=== PATIENT | female | born 2005 | race Caucasian/White ===

== ENCOUNTER → 2025-02-07 | Outpatient (CLI) | payer OTHER, SELFPAY ==
--- NOTE | 2025-02-04 | LES_PTH ---
PATIENT: DEQUAN URIAS LOC: [facility] U#:[id number] AGE/SX: 19/ ROOM: RE02/07/[address]: Dr. Jeremy Lorenzana MD : 2005 BED: DIS: 02/07/2025 SPEC #: [id number] RECD: 02/04/25 17:20 STATUS: JAY SIMON #: [id number] ALTAGRACIA: 02/04/25 00:[address]: Jeremy Lorenzana DEPT: SURGICAL PATHOLOGY RECD BY: Silvio Bustos ENTERED: 02/07/25 09:37 SP TYPE: Lesion OTHR DR: Dr. Florencio Bueno MD Tissues: A - Skin of external ear, NOS Procedures: Surgery Specimen Level IV HEADER OPERATION: Excision of lesion left earlobe PRE-OP DIAGNOSIS: Left earlobe lesion TISSUE SUBMITTED: A- Lesion of left earlobe MICROSCOPIC DIAGNOSIS A. Earlobe, left, lesion, excision: * Skin with scar demonstrating thick collagen bands consistent with hypertrophic scar/keloid. MICROSCOPIC DESCRIPTION Slides are reviewed. GROSS DESCRIPTION A. Received in formalin labeled with the patient's name and date of . Designated as lesion left earlobe is a 0.8 x 0.6 x 0.5 cm polypoid portion of [place] skin (devoid of orientation) and a separate, 0.9 x 0.5 x 0.4 cm irregular tissue fragment. The resection margin of the skin is inked black and is bisected revealing rubbery to fibrotic cut surfaces. Entirely submitted in 1 cassette. MD 02/07/2025 CPT:90079
--- OUTSIDE RECORDS SUMMARY | 2025-02-07 20:44 | XMS RPT_ITS | CCD ---
Author Organization [facility] Care Team Providers Care Broadcast Meteorologist Name Role Phone Elvin Modi MD Primary Care Provider ELVIN MODI Attending Unavailable ELVIN MODI Primary Care Unavailable SCOTT HOLMAN Attending Unavailable ELVIN MODI Referring Unavailable ELVIN MODI Primary Care Unavailable Myles MEJIA, Dr. Matias Primary Care Provider Dr. Elvin Modi MD Referring Provider [phone] Dr. Jeremy Lorenzana MD Attending Provider [phone] Elvin Modi Primary Care Unavailable Elvin Modi Referring Unavailable Jeremy Lorenzana Attending Unavailable Jeremy Lorenzana Attending Unavailable Jeremy Lorenzana Referring Unavailable Elvin Modi Primary Care Unavailable Medications Current Medications Medication Drug Class(es) Dates Sig (Normalized) Sig (Original) amoxicillin 875 mg / clavulanate 125 mg oral tablet (3 sources) Penicillin-class Antibacterial Start: 03-09-2024 End: 03-16-2024 amoxicillin-clavu lanate potassium (AUGMENTIN) 875-125 mg per tablet Indications: Ingrown toenail of left foot with infection Take 1 tablet by mouth two times a day for 7 days. FOR 7 DAYS. 14 tablet 0 03/09/2024 03/16/2024 Active Start: 10-27-2023 End: 11-03-2023 take 1 tablet by mouth twice daily amoxicillin-clavulanate potassium (AUGMENTIN) 875-125 mg per tablet Indications: Ingrown toenail of left foot with infection Take 1 tablet by mouth two times a day for 7 days. 14 tablet 0 10/27/2023 11/03/2023 Active Comment on above: Take 1 tablet by hima th two times a day for 7 days. ciprofloxacin 500 mg oral tablet (1 source) Quinolone Antimicrobial Start: 03-11-20 End: 03-18-20 ciprofloxacin HCl (CIPRO) 500 mg tablet Take 1 tablet by mouth two times a day for 7 days. FOR 7 DAYS. 14 tablet 0 03/11/2024 03/18/2024 Active fluticasone propionate 0.05 mg/actuat metered dose nasal spray (1 source) Corticosteroid Start: 09-18-19 End: 10-18-19 take 2 spray(s) by mouth once daily fluticasone (FLONASE) 50 mcg/actuation nasal spray Use 2 Sprays in each nostril once daily. Rinse mouth after use. 1 Each 0 09/18/2023 10/18/2023 Active Comment on above: Use 2 Sprays in each nostril once daily. Rinse mouth after use. Problems Active Problems Problem Classification Problem Date Documented Date Episodic/Chronic Administrative/social admission (2 sources) Special examination status; Translations: [Encounter for examination for participation in sport] Episodic Other ear and sense organ disorders (1 source) Other specified disorders of right ear; Translations: [Ear pressure, right] Onset: 01-04-2025 Episodic Other ear and sense organ disorders (1 source) Disorder of left external ear, unspecified; Translations: [Disorder of left external ear, unspecified] Onset: 02-07-2025 Episodic Other skin disorders (3 sources) Infection of toenail; Translations: [Ingrowing nail] 10-27-2023 Episodic Other upper respiratory infections (1 source) Sore throat symptom; Translations: [Acute pharyngitis, unspecified] 09-18-2023 Episodic Otitis media and related conditions (1 source) Unspecified Eustachian tube disorder, bilateral; Translations: [Dysfunction of both eustachian tubes] Onset: 01-04-2025 Episodic Past or Other Problems Problem Classification Problem Date Documented Da te Episodic/Chronic Other and unspecified benign neoplasm (7 sources) Hemangioma; Translations: [Hemangioma unspecified site] Onset: 07-04-2011 07-04-2011 Episodic Other non-traumatic joint disorders (7 sources) Pain in right knee; Translations: [Pain in joint, lower leg] Onset: 02-25-2019 02-25-2019 Episodic Other skin disorders (7 sources) Pyogenic granuloma; Translations: [Pyogenic granuloma] Onset: 06-04-2011 06-04-2011 Episodic Other skin disorders (1 source) Pyogenic granuloma; Translations: [Pyogenic granuloma] Onset: 06-04-2011 Episodic Other skin disorders (1 source) Ingrowing nail; Translations: [Ingrown toenail of left foot with infection] Onset: 03-09-2024 Episodic Results Test Name Value Interpretation Reference Range Chula burgos Plastic Surgery Visit Report on 02-04-2025 Plastic Surgery Visit Report [facility] Plastic Reconstructive Surgery [address], [address] [place] [address] OFFICE VISIT Date of Service: 02/04/25 MR#: [id number] Acct: [id number] Name: HALLEY URIAS Rep #: [id number] : 2005 Provider: Dr. Jeremy Lorenzana MD Age/Sex: 19/F Location: [facility] [place] Status: Signed Intake Vital Signs 02/04/25 15:22 Weight: 147 lb BP 121/67 H Blood Pressure Location Lt brachial Position Sitting Respiration 18 Pulse 106 H Pulse Oximetry (%) 96 Oxygen Delivery Method room air Intake Visit Reasons: IN OFFICE PROCEDURE Is patient in pain?: No Allergies No Known Allergies Allergy (Unverified 02/04/25 15:14) Medications ???Medication ???Instructions ???Recorded ???Confirmed ???Type NK 02/04/25 02/04/25 History PFSH Medical History (Updated 02/04/25 @ 16:[address] Jeremy Lorenzana MD) Seasonal allergies Social History (Updated 02/04/25 @ 15:14 by Zabrina Hernandez) Smoking Status: Never smoker alcohol intake: never substance use type: does not use HPI IN OFFICE PROCEDURE Details: 1% lidocaine with epi [facility] [place] [id number] exp [id number] exp The patient is a 19-year-old female presenting with a keloid scar on the left earlobe. The lesion measures 0.5 x 0.5 cm and is located over a previous piercing site. The keloid has been present for approximately one year and causes discomfort when certain earrings are worn. The patient does not have a skin type typically associated with keloid formation, but there is a risk of recurrence if the lesion is excised. A previous similar lesion on the eyebrow was removed, which was described as solid and more red in appearance. Attestation: Documentation on this patient encounter was supported using ambient scribe technology/ voice AI technology. The patient consented to recording for the purpose of documenting the encounter. Provider reviewed content of the generated note prior to signature. ROS Details - Dermatological: Reports discomfort with certain earrings. Denies pain without earrings. General General: Yes good health; No fatigue, fever(s) or weight loss HENMT HENMT: No rhinitis, sore throat/mouth sore, nasal congestion, contacts or glaucoma Endo Endocrine: No thyroid disease, polydipsia, heat intolerance, cold intolerance, hepatitis or excessive urine Skin Skin: No Bleeding, bruising, changing moles or suspicious lesion Musc Musculoskeletal: No joint pain, joint stiffness, muscle weakness, back pain, osteoarthritis or Muscle aches/ myalgia Neuro Neurological: No headache(s), No lightheadedness and No numbness Cardio Cardiovascular: No chest pain, pacemaker, fatigue or shortness of breat with exertion Psych Psychiatric: No depression, claustrophobia or anxiety Resp Respiratory: No spitting up, shortness of breath, sleep apnea, asthma, emphysema, TB, Cough or Smoker Gastro Gastrointestinal: No diarrhea, constipation, blood in stool, nausea, vomiting or abdominal bloating Leonardo Hematologic: No anemia, No bleeding and No abnormal bleeding Genitourinary: No urinary frequency, blood in urine or incontinence Exam Details - Dermatological: 0.7 x 0.6 cm nodular lesion on left earlobe over previous piercing site Office Procedures Procedure Time Out Time Out Informed consent given: Yes Consent signed: Yes Time out checklist: patient, procedure, site marked/identified, positioning of patient, supplies available, allergies confirmed and team agrees on procedure Time out staff in room: Yes Time out verified: Yes Time out date: 02/04/25 Time out time: 16:05 Coding Level of Care Code Off vis,new,level 3 Diagnoses Skin lesion of left ear H61.92 Comment 25 modifier with CPT 11655, 69617 Assessment and Plan (No Qualifiers) Assessment and Plan (1) Skin lesion of left ear: Status: Acute Plan: Assessment and Plan The 19-year-old female presents with a keloid scar on the left earlobe, which has been present for approximately one year. The lesion is 0.7 x 0.6 cm and causes discomfort when certain earrings are worn. Although the patient does not have a typical skin type for keloid formation, there is a risk of recurrence if the lesion is excised. A previous similar lesion on the eyebrow was successfully removed, indicating potential for successful treatment of the current lesion. 1. Possible Keloid Scar On Left Earlobe The plan involves excision of the keloid scar with a follow-up appointment scheduled to monitor for recurrence. If the keloid recurs, a steroid injection will be administered to prevent further growth. The patient is advised to avoid re-piercing the earlobe until the area has healed completely. Left earlobe lesion excision Consent obtained Procedure per (more content not included)... [facility] CNOVon 01-04-2025 CNOV Office Visit (PEDSWS ) HALLEY URIAS ([id number]) 1 F Date Time Provider Department 01/04/25 10:30 AM ELVIN MODI PEDYAMILETH During your visit today, we recorded the following information about you: Temperature Pulse Respiration Blood pressure 97.1 degrees 76/minute 16/minute 116/72 Weight Last Period 66.3 kg 12/26/24 Elvin Modi MD 01/04/2025 11:17 AM Signed Hearing screen: FAILED Pure Tone Hearing Test: Provider notified. Pure Tone Hearing Test (20 dB at all frequencies or 25 dB at 500Hz) Right Ear: -500 Hz 40 -1000 Hz 25 -2000 Hz 20 -4000 Hz 20 Left Ear: -500 Hz 25 -1000 Hz 20 -2000 Hz 20 -4000 Hz 35 Subjective Halley is a 19-year-old female, otherwise healthy, presenting with right ear pressure and decreased hearing. Halley reports a 1-week history of right ear pressure and decreased hearing. Symptoms began suddenly while running with a right earbud in place, when she felt a sensation of increased moisture in the ear canal, causing the earbud to dislodge. Upon reinsertion, she noted significantly reduced auditory perception in the right ear, despite the earbud functioning normally in the left ear and being confirmed as operational by others. She also experiences intermittent pulsatile sensations in the right ear, described as pounding. She denies otorrhea, but mentions a sensation of potential discharge when lying down, though none has been observed. She denies inserting any foreign objects into the ear canal. She has not required pharmacological management for seasonal allergies, which she describes as mild. She denies fever, cough, chest tightness, dyspnea, or wheezing, but reports recent onset of URI symptoms, including cough, rhinorrhea, and congestion, beginning on Friday. 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 Additionally, she inquires about a fleshy lesion on her left ear, which she is considering having excised by a plastic surgeon. She has attempted warm compresses without improvement. Constitutional: (-) fever Ears/Nose/Mouth/Throat: (+) congestion, (+) ear pressure (right), (+) hearing changes (right), (-) ear discharge Respiratory: (-) cough, (-) shortness of breath, (-) chest tightness, (-) wheezing Skin: (+) ear lesion (left) Objective Blood pressure 116/72, pulse 76, temperature 36.2 ?C (97.1 ?F), temperature source Temporal, resp. rate 16, weight 66.3 kg (146 lb 3.2 oz), last menstrual period 12/26/2024. Physical examination of the head, neck, external ears, mouth and face fail to demonstrate any significant abnormality or assymetry to critical face to face observation. The salivary glands were normal. Facial motion was intact. NOSE: Examination of the nasal chamber revealed no significant abnormalities of the nasal septum, turbinates or meati. The mucosa was healthy and the airway was satisfactory MOUTH: Examination of the mouth included the lips, teeth, gums, hard and soft palate, tongue, floor of the mouth, and buccal mucosa were healthy to inspection and the mucosa was moist. OROPHARYNX: Examination of the oropharynx, including the soft palate, tonsillar fossa and posterior pharyngeal nichols were unremarkable and symmetrical. NECK: Inspection and palpation of the neck revealed no scars, masses crepitation or asymmetries. The thyroid was not palpable and was free of masses. EARS: Otoscoptic examination of the external canal, tympanic membrane and middle ear was unremarkable. Tympanic membranes are intact. There is a fleshy lobular lesion over the left earlobe. No discharge. Not fluctuant. Tests - Tympanogram: Type A bilaterally. - Audiogram: - Right ear: - 500 Hz: 40 dB - 1000 Hz: 25 dB - 2000 Hz: 20 dB - 4000 Hz: 20 dB - Left ear: - 500 Hz: 25 dB - 1000 Hz: 20 dB - 2000 Hz: 20 dB - 4000 Hz: 35 dB 1. Dysfunction of both eustachian tubes (H69.93) 2. Ear pressure, right (H93.8X1) - Conducted otoscopic examination; tympanic membranes intact with no signs of perforation or obstruction. - Tympanometry revealed Type A tympanograms bilaterally, indicating normal middle ear pressure. - Audiometry showed mild hearing loss in the lower frequencies on the right side: 500 Hz at 40 dB, 1000 Hz at 25 dB, 2000 Hz at 20 dB, 4000 Hz at 20 dB. - Diagnosed with Eustachian tube dysfunction, likely secondary to a viral upper respiratory infection. - Recommended Fluticasone nasal spray, two sprays in each nostril once daily for two weeks. - Advised taking Sudafedrin 120 mg ER, one tablet in the morning and one in the evening for 10 days. - Follow-up audiometry recommended after treatment course. 3. Pyogenic granuloma (L98.0) - Lesion on the ear appears fleshy, consistent with a pyogenic granuloma. - Discussed treatment options including surgical excision by a plastic surgeon (more content not included)... Normal [facility] Bacteria Wnd Culton 03-09-20 24 Bacteria identified Cx Nom (Wound) ORGANISM ID: 1 Moderate Staphylococcus aureus ORGANISM ID: 2 Moderate skin peña ORGANISM ID: 3 Rare Pseudomonas aeruginosa GRAM STAIN: Rare Gram positive cocci No Polymorphonuclear Leukocytes ORGANISM ID: 1 (STAPHYLOCOCCUS AUREUS) ANTIBIOTIC INTERPRETATION ISAÍAS STATUS REFERENCE RANGE Oxacillin S 0.5 F Susceptible <=2 , Resistant >2 Oxacillin-susceptible staphylococci are susceptible to other penicilllinase-stable penicillins, beta-lactam/beta-lactam ase inhibitor combinations, anti-staphylococcal cephems, and carbapenems. Erythromycin S <=0.25 F Susceptible <=0.5 , Intermediate >.5 , Resistant >4 Clindamycin S 0.25 F Susceptible <=0.5 , Intermediate >.5 , Resistant >2 Trimeth sulfameth S <=10 F Susceptible <=40 , Resistant >40 Vancomycin S 1 F Susceptible <=2 , Intermediate >2 , Resistant >8 Rifampin S <=0.5 F Susceptible <=1 , Intermediate >1 , Resistant >2 Rifampin should not be used alone for antimicrobial therapy. Tetracycline S <=1 F Susceptible <=4 , Intermediate >4 , Resistant >8 Doxycycline S <=0.5 F Susceptible <=4 , Intermediate >4 , Resistant >8 ORGANISM ID: 3 (PSEUDOMONAS AERUGINOSA) ANTIBIOTIC INTERPRETATION ISAÍAS STATUS REFERENCE RANGE Cefepime S 4 F Susceptible <=8 , Intermediate >8 , Resistant >16 Meropenem S <=0.5 F Susceptible <=2 , Intermediate >2 , Resistant >4 Piperacillin/Tazobac S 8 F Gentamicin R F Tobramycin NI <=2 F This isolate is intermediate or susceptible to tobramycin. If discrimination between intermediate and susceptible is needed, please call the lab to request additional testing. Ciprofloxacin S <=0.25 F Susceptible <=0.5 , Intermediate >.5 , Resistant >[address] [facility] Comment on above: Performed By: #### [id number] #### [facility] CLIA [id number] [address] [place] [address] [facility] CNOVon 03-09-2024 CNOV Office Visit (PODIWS ) HALLEY URIAS ([id number]) 1 F Date Time Provider Department 03/09/24 9:15 AM SCOTT HOLMAN During your visit today, we recorded the following information about you: Alina Aguila RN 03/10/2024 7:57 AM Signed Patient presents with: Left Great Toe - New Patient, Ingrown Nail Patient c/o ingrown toenail to L hallux lateral border since October. Was evaluated at PCP's office in October and placed on antibiotic. Since finishing antibiotic she has not had pain. Jeniffer Herrera LPN 03/09/2024 9:27 AM Signed Post-Op Nail Instructions Minimize activity until the anesthesia wears off (about 2-8 hours). Increase activity to tolerance Remove bandage tomorrow Soak affected toe/foot in epsom salts for 15-20 minutes twice daily After soaking, apply antibiotic ointment (OTC Neosporin) to affected toe and re bandage OTC Ibuprofen if having pain, provided you have no allergies or intolerance to NSAIDS Mild drainage, redness, and blood is expected, but if you expeirence severe pain, increase in drainage, swelling, or red streaking please contact our office immediately Feel free to contact office as well if you have any questions/concerns [phone], ask for Podiatry Nurse Jeniffer Herrera LPN 03/10/2024 7:57 AM Signed UNIVERSAL PROTOCOL / SAFETY CHECKLIST Procedure to be Performed: Partial nail avulsion, left hallux lateral nail border Sign In: A Moment of CARE was completed. Personnel directly involved with the procedure wore the appropriate PPE (Personal Protective Equipment). No special equipment needed. Patient/Surrogate Stated/Verified: PATIENT VERIFIED(optional for EMERGENT procedures): Patient name, Date of , Relevant allergies, and The intended procedure Time Out Communication: Intended patient and procedure match the source documents. Consent documented and matches the intended procedure. Relevant labs, photos, and/or imaging studies have been reviewed. Correct side/site marked and visible. Medications required for procedure verified. No fire risk assessment and interventions applicable. No implant(s) inserted. Sign Out: SIGN OUT (optional for EMERGENT procedures): All specimen containers correctly labeled. All instruments, equipment, possible retained foreign bodies accounted for. Post-procedure follow-up management communicated and Plan of Care Visit completed when applicable. ANN-MARIE MaldonadoScott 03/10/2024 7:57 AM Signed Consultation requested by Dr. Modi for an opinion regarding left hallux ingrowing toenail. My final recommendations will be communicated back to the requesting physician by way of shared Medical record or letter to requesting physician via US mail. Initial Podiatric Office Visit: Chief Complaint: This 18 year old female who presents with chief complaint:ingrowing toenail of left hallux lateral nail border HPI Patient presents to clinic for evaluation of left hallux Complains of chronic ingrowing toenail to the lateral border of left hallux This is an ongoing issue. Has been on antibiotics in the past. Here to discuss options. PAIN EVALUATION No data found in the last 1 encounters. HBA1CBritni (%) Date Value 05/23/2011 5.3 PCP: Elvin Modi MD PAST MEDICAL HISTORY Diagnosis Date PMH - PAST MEDICAL HISTORY OF 02/2007 normal color vision Current Outpatient Medications Medication Sig amoxicillin-clavulanate potassium (AUGMENTIN) 875-125 mg per tablet Take 1 tablet by mouth two times a day for 7 days. FOR 7 DAYS. No current facility-administered medications for this visit. ALLERGIES No Known Allergies PAST SURGICAL HISTORY Procedure Laterality Date NONE REM LESION FACE,EAR,EYE 0.6-1CM 05/28/11 Right eyebrow hemangioma FAMILY HISTORY Problem Relation Age of Onset Asthma Maternal Grandmother Hypertension Paternal Grandfather Heart Father atrial fibrillation Social History Tobacco Use Smoking status: Never Smokeless tobacco: Never Tobacco comments: no smoking in house Substance Use Topics Alcohol use: No Drug use: No REVIEW OF SYSTEMS GENERAL: Negative for Malaise, significant weight loss, fever RESPIRATORY: Negative for cough, wheezing and shortness of breath CARDIOVASCULAR: Negative for chest pain, leg swelling and palpitations GI: Negative for abdominal discomfort, blood in stools or black stools and change in bowel habits : Negative for dysuria, frequency and incontinence MUSCULOSKELETAL: Negative for joint pain or swelling, back pain, and muscle pain. SKIN: Negative for lesions, rash, and itching. HEMATOLOGY/LYMPHOLOGY Negative for prolonged bleeding, bruising easily, and swollen nodes. ENDOCRINE: Negative for cold or heat intolerance, polyuria, polydipsia and goiter. NEURO: negative Physical Exam: Constitutional: Pt is a well (more content not included)... Normal [facility] 01-27-2024 [facility] Telephone (PEDSWS) HALLEY URIAS ([id number]) 1 F Date Time Provider Department 01/27/24 ELVIN MODI PEDYOLANDAS During your visit today, we recorded the following information about you: Charisma Grewal LPN 01/27/2024 1:34 PM Signed Pt has a possible infected great toe. Wonders if you can see or if can get a referral placed to go to Podiatry? Elvin Modi MD 02/02/2024 2:48 PM Signed Telephone on 01/27/24 CONSULT TO PODIATRY Elvin Modi MD Allergies As of Date: 01/27/2024 (No Known Allergies) Date Reviewed: 10/27/2023 Reviewed by: Renee Moreira MA - Fully Assessed Reason for Visit: Ingrown Toenail [111] Primary Visit Diagnosis:Ingrown toenail of left foot with infection [L60.0] Order(s):CONSULT TO PODIATRY [9034] Order #: [id number]: 1 FUTURE Problem List As Of Date 01/27/2024 Noted Resolved Pyogenic granuloma [L98.0] 06/04/2011 Hemangioma [D18.00] 07/04/2011 Acute pain of right knee [M25.561] 02/25/2019 Encounter Status:Closed by ELVIN MODI on 02/02/[address] [facility] COVID & INFLUENZA A/B & RSV NAAT, ROUTINEon 09-19-2023 FLUAV RNA CAMILLA+probe Ql (Unsp spec) Not detected Not Detected [facility] FLUBV RNA CAMILLA+probe Ql (Unsp spec) Not detected Not Detected [facility] RSV A RNA CAMILLA+probe Ql (Unsp spec) Detected Abnormal Not Detected [facility] SARS-CoV-2 (COVID-19) RNA CAMILLA+probe Ql (Resp) Not detected See comment [facility] STREP A MOLECULAR (POC)on Procedural Control Valid [facility] Strep A (POCT) Negative Negative [facility] XR ANKLE 3V AP/LAT/OBL RTon 07-11-2021 XR ANKLE 3V AP/LAT/OBL RT * * *Final Report* * * DATE OF EXAM: Jul 11 2021 5:41PM LDX 5297 - XR ANKLE 3V AP/LAT/OBL RT / PROCEDURE REASON: Ankle pain, initial exam * * * * Physician Interpretation * * * * RIGHT ANKLE, 3 VIEWS, 07/11/2021 HISTORY: Injury. Pain and swelling laterally. COMPARISON: None TECHNIQUE: AP, lateral, and internal oblique views. RESULTS: There is mild soft tissue swelling laterally. The bones appear intact and normally aligned. There is no widening of the ankle mortise. There are no underlying bone lesions. The joint spaces appear normal. There are no soft tissue calcifications. IMPRESSION: Mild soft tissue swelling laterally. No bone or joint abnormalities. [employer] Executive Director: KAT Transcribe Date/Time: Jul 11 2021 5:44P Dictated by : DENY CARRILLO MD This examination was interpreted and the report reviewed and electronically signed by: DENY CARRILLO MD on Jul 11 2021 5:45PM EST [id number] Normal [facility] Vital Signs Date Time Vital Sign Value Performing Clinician Facility 02-04-2025 15:22-0400 Body weight 66.[address] Elvin Modi MD Work Phone: [facility] 02-04-2025 15:22-0400 Diastolic blood pressure 67 mm[Hg] Dr. Elvin Modi MD Work Phone: [phone] [place] [address] 02-04-2025 15:22-0400 Heart rate 106 /min Dr. Elvin Modi MD Work Phone: [phone] [place] [address] 02-04-2025 15:22-0400 Respiratory rate 18 /min Dr. Elvin Modi MD Work Phone: [phone] [place] [address] 02-04-2025 15:22-0400 SaO2% (BldA) [Mass fraction] 96 % Dr. Elvin Modi MD Work Phone: [facility] 02-04-2025 15:22-0400 Systolic blood pressure 121 mm[Hg] Dr. Elvin Modi MD Work Phone: [facility] 10-27-2023 09:29-0400 Body height 168.9 cm Elvin Modi MD Work Phone: [facility] 10-27-2023 09:29-0400 Body temperature 97.9 [degF] Elvin Modi MD Work Phone: [facility] 10-27-2023 09:29-0400 Body weight 68.13 kg Elvin Modi MD Work Phone: [facility] 10-27-2023 09:29-0400 Heart rate 72 /min Elvin Modi MD Work Phone: [facility] 10-27-2023 09:29-0400 Respiratory rate 16 /min Elvin Modi MD Work Phone: [facility] 09-18-2023 16:30-0500 Body temperature 98.71 [degF] Marcelladennis Babcock APRN.BROOMMAKING SUPERVISOR Work Phone: [facility] 09-18-2023 16:30-0500 Body weight 68.95 kg Marcella Babcock MASS SPECTROMETRY MANAGER.BROOMMAKING SUPERVISOR Work Phone: [facility] 09-18-2023 16:30-0500 Diastolic blood pressure 87 mm[Hg] Marcella Babcock MASS SPECTROMETRY MANAGER.BROOMMAKING SUPERVISOR Work Phone: [facility] 09-18-2023 16:30-0500 Heart rate 107 /min Marcella Babcock MASS SPECTROMETRY MANAGER.BROOMMAKING SUPERVISOR Work Phone: [facility] 09-18-2023 16:30-0500 Respiratory rate 20 /min Marcella Babcock MASS SPECTROMETRY MANAGER.BROOMMAKING SUPERVISOR Work Phone: [facility] 09-18-2023 16:30-0500 SaO2% (BldA) [Mass fraction] 96 % Marcella James KEVIN.BROOMMAKING SUPERVISOR Work Phone: [facility] 09-18-2023 16:30-0500 Systolic blood pressure 142 mm[Hg] Marcella Babcock MASS SPECTROMETRY MANAGER.BROOMMAKING SUPERVISOR Work Phone: [facility] 03-28-2022 17:43-0400 Body temperature 98.49 [degF] Ilsa Athy PA-C Work Phone: [facility] 03-28-2022 17:43-0400 Body weight 66.77 kg Ilsa Athy PA-C Work Phone: [facility] 03-28-2022 17:43-0400 Diastolic blood pressure 82 mm[Hg] Ilsa Athy PA-C Work Phone: [facility] 03-28-2022 17:43-0400 Heart rate 81 /min Ilsa Athy PA-C Work Phone: [facility] 03-28-2022 17:43-0400 Respiratory rate 16 /min Ilsa Athy PA-C Work Phone: [facility] 03-28-2022 17:43-0400 SaO2% (BldA) [Mass fraction] 98 % Ilsa Athy PA-C Work Phone: [facility] 03-28-2022 17:43-0400 Systolic blood pressure 124 mm[Hg] Ilsa Solorzano PA-C Work Phone: [facility] Encounters Encounter Date Encounter Type Care Provider Facility Start: 02-07-2025 ambulatory Jeremy Lorenzana Facility:[facility] Start: 02-04-2025 End: 02-04-[address] Jeremy Lorenzana MD -[facility] Work Phone: Start: 02-04-2025 End: 02-04-[address] Elvin Modi MD Work Phone: [facility] Work Phone: Start: 01-04-2025 End: 01-04-2025 ambulatory ELVIN MODI Facility:[facility] Start: 03-11-2024 ambulatory Scott Suazora asif Work Phone: Podiatry Comment on above: wound culture Start: 03-11-2024 E-mail encounter fro m caregiver Scott Holman Work Phone: Podiatry Start: 03-09-2024 End: 03-09-2024 ambulatory SCOTT HOLMAN Facility:[facility] Start: 03-09-2024 End: 03-09-2024 Patient encounter procedure Scott Holman Work Phone: Podiatry Comment on above: Ingrown toenail of l eft foot with infection Start: 01-27-2024 Telephone encounter Elvin estrada MD Work Phone: [facility] Comment on above: Ingrown Toenail Start: 10-27-2023 End: 10-27-2023 Patient encounter procedure Elvin Modi MD Work Phone: [facility] Comment on above: Ingrown toenail of l eft foot with infection (Primary Dx) Start: 09-18-2023 End: 09-18-2023 Patient encounter procedure Marcella Babcock APRN.CNP Work Phone: [facility] Comment on above: Sore throat (Primary Dx) Start: 03-28-2022 End: 03-28-2022 Patient encounter procedure Ilsa Solorzano PA-C Work Phone: [facility] Comment on above: Sports physical (Zenia albaro Dx) Start: 02-12-2022 Telephone encounter Elvin estrada MD Work Phone: [facility] Comment on above: Appointment Procedures Date Procedure Procedure Detail Performing Clinician Start: 03-09-2024 Cul bact xcpt urine blood/stool aerobic isol Scott Holman Work Phone: Start: 09-18-2023 COVID & INFLUENZA A/ B & RSV NAAT, ROUTINE Marcella Babcock APRN.BROOMMAKING SUPERVISOR Work Phone: Start: 09-18-2023 STREP A MOLECULAR (POC) Marcella Babcock APRN.BROOMMAKING SUPERVISOR Work Phone: Start: 03-26-2021 Adult depression screening assessment Elvin Modi MD Work Phone: Plan of Treatment Date Care Activity Detail Author Start: 03-18-2026 Urine microalbumin profile [facility] Start: 04-18-2024 Influenza vaccination [facility] Start: 08-18-2023 Behavioral Health Screening Behavioral Health Screening [facility] Start: 08-18-2023 Depression Assessment Depression Assessment [facility] Start: 04-18-2023 Covid-19 Vaccine ( season) Covid-19 Vaccine ( season) [facility] Start: 04-18-2023 Influenza vaccination Influenza Vaccine (#1) [facility] Start: 04-18-2022 Influenza vaccination [facility] Start: 03-26-2022 Adult depression screening assessment DEPRESSION SCREENING [facility] Start: 12-17-2021 Anxiety Screening Anxiety Screening [facility] Start: 12-17-2021 CHLAMYDIA SCREENING (18-24) CHLAMYDIA SCREENING (18-24) [facility] Start: 12-17-2021 Depression Screening Depression Screening [facility] Start: 12-17-2021 GC (GONORRHEA) SCREENING (18-24) GC (GONORRHEA) SCREENING (18-24) [facility] Start: 12-17-2021 HEPATITIS C SCREENING HEPATITIS C SCREENING [facility] Start: 12-17-2021 Hepatitis C screening Hepatitis C Screening [facility] Start: 12-17-2021 HIV SCREENING HIV SCREENING [facility] Start: 12-17-2021 HIV screening HIV Screening [facility] Start: 12-17-2021 Screening for Chlamydia trachomatis Chlamydia Screening (18-24) [facility] Start: 2019 Meningococcal B Vaccine: Consider Based On Risk (1 of 2 - Patient Seeks Protection) Meningococcal B Vaccine: Consider Based On Risk (1 of 2 - Patient Seeks Protection) [facility] Start: 12-17-2018 HPV Vaccine (1 - 3-dose series) HPV Vaccine (1 - 3-dose series) [facility] Start: 12-17-2017 PEDS TO ADULT TRANSITION ANNUAL ASSESSMENT PEDS TO ADULT TRANSITION ANNUAL ASSESSMENT [facility] Start: 2015 PEDS TO ADULT TRANSITION INITIAL DISCUSSION PEDS TO ADULT TRANSITION INITIAL DISCUSSION [facility] Start: 12-17-2014 HPV VACCINE (1 - 2-dose series) HPV VACCINE (1 - 2-dose series) [facility] Start: 12-17-2013 MENINGOCOCCAL B: Consider based on risk (1 of 2 - Risk Bexsero 2-dose series) MENINGOCOCCAL B: Consider based on risk (1 of 2 - Risk Bexsero 2-dose series) [facility] Start: 12-17-2012 HPV Vaccine (1 - 2-dose series) HPV Vaccine (1 - 2-dose series) [facility] Start: 12-17-2008 COVID-19 VACCINE (#1) COVID-19 VACCINE (#1) [facility] Start: 06-19-2004 COVID-19 VACCINE (#1) COVID-19 VACCINE (#1) [facility] Bacteria identified in Wound by Culture ABSCESS AND WOUND CULTURE WITH GRAM STAIN Microbiology Routine Ingrown toenail of left foot with infection 03/09/2024 10:06 AM EDT [facility] Work Phone: [facility] Immunizations Immunization Date Immunization Notes Care Provider Fa cili 03-02-2020 meningococcal polysaccharide (groups A, C, Y and W-135) diphtheria toxoid conjugate vaccine (MCV4P) Elvin Modi MD Work Phone: [facility] Work Phone: 03-18-2016 meningococcal polysaccharide (groups A, C, Y and W-135) diphtheria toxoid conjugate vaccine (MCV4P) Elvin Modi MD Work Phone: [facility] 03-18-2016 tetanus toxoid, redu canelo diphtheria toxoid, and acellular pertussis vaccine, adsorbed Elvin Modi MD Work Phone: [facility] 05-17-2013 influenza virus vacc ine, live, attenuated, for intranasal use Elvin Modi MD Work Phone: [facility] Work Phone: 05-17-2013 influenza virus vacc ine, unspecified formulation Marcella Babcock APRN.[facility] Work Phone: [facility] 08-06-2012 influenza virus vacc ine, live, attenuated, for intranasal use Elvin Modi MD Work Phone: [facility] 06-27-2009 novel influenza-H1N1 -09, all formulations Elvin Modi MD Work Phone: [facility] Work Phone: 03-08-2009 diphtheria, tetanus toxoids and acellular pertussis vaccine Elvin Modi MD Work Phone: [facility] Work Phone: 03-08-2009 measles, mumps and rubella virus vaccine Elvin Modi MD Work Phone: [facility] Work Phone: 03-08-2009 poliovirus vaccine, inactivated Elvin Modi MD Work Phone: [facility] Work Phone: 09-18-2005 Chicken Pox (disease) Elvin narvaez MD Work Phone: [facility] Work Phone: 06-21-2005 influenza virus vacc ine, unspecified formulation Elvin Modi MD Work Phone: [facility] 03-20-2005 diphtheria, tetanus toxoids and acellular pertussis vaccine Elvin Modi MD Work Phone: [facility] Work Phone: 03-20-2005 haemophilus influenz ae type b vaccine, HbOC conjugate Elvin Modi MD Work Phone: [facility] Work Phone: 2004 measles, mumps and rubella virus vaccine Elvin Modi MD Work Phone: [facility] Work Phone: 2004 pneumococcal conjuga te vaccine, 7 valent Elvin Modi MD Work Phone: [facility] Work Phone: 06-19-2004 DTaP-hepatitis B and poliovirus vaccine Elvin Modi MD Work Phone: [facility] Work Phone: 06-19-2004 haemophilus influenz ae type b vaccine, HbOC conjugate Elvin Modi MD Work Phone: [facility] Work Phone: 06-19-2004 influenza virus vacc ine, unspecified formulation Elvin Modi MD Work Phone: [facility] Work Phone: 06-19-2004 pneumococcal conjuga te vaccine, 7 valent Elvin Modi MD Work Phone: [facility] Work Phone: 04-26-2004 DTaP-hepatitis B and poliovirus vaccine Elvin Modi MD Work Phone: [facility] Work Phone: 04-26-2004 haemophilus influenz ae type b vaccine, HbOC conjugate Elvin Modi MD Work Phone: [facility] Work Phone: 04-26-2004 pneumococcal conjuga te vaccine, 7 valent Elvin Modi MD Work Phone: [facility] Work Phone: 02-29-2004 DTaP-hepatitis B and poliovirus vaccine Elvin Modi MD Work Phone: [facility] Work Phone: 02-29-2004 haemophilus influenz ae type b vaccine, HbOC conjugate Elvin Modi MD Work Phone: [facility] Work Phone: 02-29-2004 pneumococcal conjuga te vaccine, 7 valent Elvin Modi MD Work Phone: [facility] Work Phone: Payers Date Payer Category Payer Self-pay 2024 Private Health Insurance [id number] 2023 Unknown [employer] GMS [id number] 2023-Present [phone] [address] [place] [address] PPO [id number] 2023 Unknown [id number] 2017 Medicaid [place] [employer] [place] [employer] [id number] 2017-Present [phone] [address] [place], [place] [address] Medicaid [id number] 2017 Medicaid [place] [employer] [id number] 2017-Present [phone] [address] [place] [address] Medicaid [id number] 2011 Unknown [employer] [id number] Unknown [id number] Unknown [id number] Social History Date Type Detail Facility Start: 02-06-2018 End: 02-04-2025 Tobacco smoking status NHIS Never smoked tobacco [facility] Start: 07-11-2021 End: 03-09-2024 Alcohol intake Current non-drinker of alcohol (finding) [facility] Start: 2003 Sex Assigned At Not on file [facility] Start: 02-06-2018 End: 09-18-2023 Tobacco use and exposure Smokeless tobacco non-user [facility] Start: 2003 Sex Assigned At Female C [facility] Start: 09-18-2023 End: 10-27-2023 History of Social function [facility] Start: 09-18-2023 End: 10-27-2023 Tobacco use panel [facility] PHQ2 Score 0 [place] [facility] Start: 09-18-2023 Tobacco Comment no smoking in house [facility] Start: 02-22-2022 Gender identity Identifies as female gender (finding) [facility] Start: 02-22-2022 Sexual orientation Heterosexual (fin baldo) [facility] Clinical Notes 02-12-2022 to 01-04-2025 Telephone Encounter - TestScott carrillo - 03/11/2024 10:06 PM EDTTelephone Encounter - Testrayefri Scott - 03/11/2024 10:[address] - 03/10/2024 7:51 AM EDTPatient Instructions Note Date & Type Note Facility 01-04-2025 Note HNO ID: [id number] Author: ELVIN MODI MD Service: ? Author Type: Physician Type: Progress Notes Filed: 01/04/2025 11:17 Note Text: Hearing screen: FAILED Pure Tone Hearing Test: Provider notified. Pure Tone Hearing Test (20 dB at all frequencies or 25 dB at 500Hz) Right Ear: -500 Hz 40 -1000 Hz 25 -2000 Hz 20 -4000 Hz 20 Left Ear: -500 Hz 25 -1000 Hz 20 -2000 Hz 20 -4000 Hz 35 Billie Rowley is a 19-year-old female, otherwise healthy, presenting with right ear pressure and decreased hearing. Halley reports a 1-week history of right ear pressure and decreased hearing. Symptoms began suddenly while running with a right earbud in place, when she felt a sensation of increased moisture in the ear canal, causing the earbud to dislodge. Upon reinsertion, she noted significantly reduced auditory perception in the right ear, despite the earbud functioning normally in the left ear and being confirmed as operational by others. She also experiences intermittent pulsatile sensations in the right ear, described as pounding. She denies otorrhea, but mentions a sensation of potential discharge when lying down, though none has been observed. She denies inserting any foreign objects into the ear canal. She has not required pharmacological management for seasonal allergies, which she describes as mild. She denies fever, cough, chest tightness, dyspnea, or wheezing, but reports recent onset of URI symptoms, including cough, rhinorrhea, and congestion, beginning on Friday. 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 Additionally, she inquires about a fleshy lesion on her left ear, which she is considering having excised by a plastic surgeon. She has attempted warm compresses without improvement. Constitutional: (-) fever Ears/Nose/Mouth/Throat: (+) congestion, (+) ear pressure (right), (+) hearing changes (right), (-) ear discharge Respiratory: (-) cough, (-) shortness of breath, (-) chest tightness, (-) wheezing Skin: (+) ear lesion (left) Objective Blood pressure 116/72, pulse 76, temperature 36.2 ?C (97.1 ?F), temperature source Temporal, resp. rate 16, weight 66.3 kg (146 lb 3.2 oz), last menstrual period 12/26/2024. Physical examination of the head, neck, external ears, mouth and face fail to demonstrate any significant abnormality or assymetry to critical face to face observation. The salivary glands were normal. Facial motion was intact. NOSE: Examination of the nasal chamber revealed no significant abnormalities of the nasal septum, turbinates or meati. The mucosa was healthy and the airway was satisfactory MOUTH: Examination of the mouth included the lips, teeth, gums, hard and soft palate, tongue, floor of the mouth, and buccal mucosa were healthy to inspection and the mucosa was moist. OROPHARYNX: Examination of the oropharynx, including the soft palate, tonsillar fossa and posterior pharyngeal nichols were unremarkable and symmetrical. NECK: Inspection and palpation of the neck revealed no scars, masses crepitation or asymmetries. The thyroid was not palpable and was free of masses. EARS: Otoscoptic examination of the external canal, tympanic membrane and middle ear was unremarkable. Tympanic membranes are intact. There is a fleshy lobular lesion over the left earlobe. No discharge. Not fluctuant. Tests - Tympanogram: Type A bilaterally. - Audiogram: - Right ear: - 500 Hz: 40 dB - 1000 Hz: 25 dB - 2000 Hz: 20 dB - 4000 Hz: 20 dB - Left ear: - 500 Hz: 25 dB - 1000 Hz: 20 dB - 2000 Hz: 20 dB - 4000 Hz: 35 dB 1. Dysfunction of both eustachian tubes (H69.93) 2. Ear pressure, right (H93.8X1) - Conducted otoscopic examination; tympanic membranes intact with no signs of perforation or obstruction. - Tympanometry revealed Type A tympanograms bilaterally, indicating normal middle ear pressure. - Audiometry showed mild hearing loss in the lower frequencies on the right side: 500 Hz at 40 dB, 1000 Hz at 25 dB, 2000 Hz at 20 dB, 4000 Hz at 20 dB. - Diagnosed with Eustachian tube dysfunction, likely secondary to a viral upper respiratory infection. - Recommended Fluticasone nasal spray, two sprays in each nostril once daily for two weeks. - Advised taking Sudafedrin 120 mg ER, one tablet in the morning and one in the evening for 10 days. - Follow-up audiometry recommended after treatment course. 3. Pyogenic granuloma (L98.0) - Lesion on the ear appears fleshy, consistent with a pyogenic granuloma. - Discussed treatment options including surgical excision by a plastic surgeon for optimal cosmetic outcome. - Patient's mother works at a plastic surgeon's office; patient will consult with them for removal. Attestation Recording using [employer] software for draft documentation of the visit was discussed with the patient/authorized manufacturers representative; all questions welcomed and answered (more content not included)... [facility] 03-11-2024 Telephone encounter Note Called in [employer] for patient Scott Holman DPM [facility] 03-11-2024 Miscellaneous Notes Called in [employer] for patient Soctt Holman DPM documented in this encounter [facility] 03-10-2024 Note HNO ID: [id number] Author: SCOTT HOLMAN, ? Service: ? Author Type: Physician Type: Progress Notes Filed: 03/10/2024 07:57 Note Text: Consultation requested by Dr. Modi for an opinion regarding left hallux ingrowing toenail. My final recommendations will be communicated back to the requesting physician by way of shared Medical record or letter to requesting physician via US mail. Initial Podiatric Office Visit: Chief Complaint: This 18 year old female who presents with chief complaint:ingrowing toenail of left hallux lateral nail border HPI Patient presents to clinic for evaluation of left hallux Complains of chronic ingrowing toenail to the lateral border of left hallux This is an ongoing issue. Has been on antibiotics in the past. Here to discuss options. PAIN EVALUATION No data found in the last 1 encounters. HBA1C, [place] (%) Date Value 05/23/2011 5.3 PCP: Elvin Modi MD PAST MEDICAL HISTORY Diagnosis Date PMH - PAST MEDICAL HISTORY OF 02/2007 normal color vision Current Outpatient Medications Medication Sig amoxicillin-clavulanate potassium (AUGMENTIN) 875-125 mg per tablet Take 1 tablet by mouth two times a day for 7 days. FOR 7 DAYS. No current facility-administered medications for this visit. ALLERGIES No Known Allergies PAST SURGICAL HISTORY Procedure Laterality Date NONE REM LESION FACE,EAR,EYE 0.6-1CM 05/28/11 Right eyebrow hemangioma FAMILY HISTORY Problem Relation Age of Onset Asthma Maternal Grandmother Hypertension Paternal Grandfather Heart Father atrial fibrillation Social History Tobacco Use Smoking status: Never Smokeless tobacco: Never Tobacco comments: no smoking in house Substance Use Topics Alcohol use: No Drug use: No REVIEW OF SYSTEMS GENERAL: Negative for Malaise, significant weight loss, fever RESPIRATORY: Negative for cough, wheezing and shortness of breath CARDIOVASCULAR: Negative for chest pain, leg swelling and palpitations GI: Negative for abdominal discomfort, blood in stools or black stools and change in bowel habits : Negative for dysuria, frequency and incontinence MUSCULOSKELETAL: Negative for joint pain or swelling, back pain, and muscle pain. SKIN: Negative for lesions, rash, and itching. HEMATOLOGY/LYMPHOLOGY Negative for prolonged bleeding, bruising easily, and swollen nodes. ENDOCRINE: Negative for cold or heat intolerance, polyuria, polydipsia and goiter. NEURO: negative Physical Exam: Constitutional: Pt is a well developed 18 year old female who is alert, oriented and cooperative Eyes: Following during examination. No redness or drainage. Respiratory: RR normal and nonlabored. Even breathing. No evidence of distress or shortness of breath. Psychology: Patient is engaged during conversation. Normal affect and mood. Does not appear depressed or anxious during encounter. Vascular: Dorsalis pedis and posterior tibial pulses palpable as b/l Capillary Fill time < 5 seconds to digits 1-5 b/l Skin temperature warm to warm proximal to distal b/l Hair growth present to digits Neurological: intact light touch/epicritic sensation b/l intact protective sensation no significant neurological deficits Dermatological: Left hallux lateral nail border is ingrowing with pain. There is small amount of drainage noted to left hallux lateral nail border with swelling and redness Musculoskeletal/Orthopaedic: Patient has pain to palpation of left hallux lateral nail border Radiographs: n/a ASSESSMENT: (L60.0) Ingrown toenail of left foot with infection PLAN: 1. History and physical examination performed. 2. Discussed ingrowing toenail of left hallux lateral nail border. This is an ongoing issue for patient. I discussed options for patient not limited to proper nail trimming vs partial nail matrixectomy. Being that this is a chronic problem for patient, I do feel partial nail matrixectomy is a reasonable option to consider. The only concern I have at this time is there is what appears to be infection present as evident by redness, drainage and swelling. I discussed options today with patient not limited to placing patient on antibiotic and doing partial nail avulsion vs slant back debridement and coming back to do definitive procedure in 1-2 weeks once infection is resolved. Patient elected for avulsion today and will plan to do matrixectomy in future. Discussed risks of toenail procedure not limited to infection, pain, swelling, bleeding, painful scarring, recurrence, need for revised procedure. Patient consented to proceed. Patient was properly identified by name and procedure. The left hallux was then injected with 3 cc of 1% lidocaine plain. The toe was then prepped and draped in the usual aseptic technique. A digital tournicot was applied to the toe. The lateral border was then freed and removed. Careful inspection was performed to assure no remain (more content not included)... [facility] 03-10-2024 History of Presen t illness Narrative Consultation requested by Dr. Modi for an opinion regarding left hallux ingrowing toenail. My final recommendations will be communicated back to the requesting physician by way of shared Medical record or letter to requesting physician via US mail. Initial Podiatric Office Visit: Chief Complaint: This 18 year old female who presents with chief complaint:ingrowing toenail of left hallux lateral nail border HPI Patient presents to clinic for evaluation of left hallux Complains of chronic ingrowing toenail to the lateral border of left hallux This is an ongoing issue. Has been on antibiotics in the past. Here to discuss options. PAIN EVALUATION No data found in the last 1 encounters. HBA1C, [place] (%) Date Value 05/23/2011 5.3 PCP: Elvin Modi MD PAST MEDICAL HISTORY Diagnosis Date PMH - PAST MEDICAL HISTORY OF 02/2007 normal color vision Current Outpatient Medications Medication Sig amoxicillin-clavulanate potassium (AUGMENTIN) 875-125 mg per tablet Take 1 tablet by mouth two times a day for 7 days. FOR 7 DAYS. No current facility-administered medications for this visit. ALLERGIES No Known Allergies PAST SURGICAL HISTORY Procedure Laterality Date NONE REM LESION FACE,EAR,EYE 0.6-1CM 05/28/11 Right eyebrow hemangioma FAMILY HISTORY Problem Relation Age of Onset Asthma Maternal Grandmother Hypertension Paternal Grandfather Heart Father atrial fibrillation Social History Tobacco Use Smoking status: Never Smokeless tobacco: Never Tobacco comments: no smoking in house Substance Use Topics Alcohol use: No Drug use: No REVIEW OF SYSTEMS GENERAL: Negative for Malaise, significant weight loss, fever RESPIRATORY: Negative for cough, wheezing and shortness of breath CARDIOVASCULAR: Negative for chest pain, leg swelling and palpitations GI: Negative for abdominal discomfort, blood in stools or black stools and change in bowel habits : Negative for dysuria, frequency and incontinence MUSCULOSKELETAL: Negative for joint pain or swelling, back pain, and muscle pain. SKIN: Negative for lesions, rash, and itching. HEMATOLOGY/LYMPHOLOGY Negative for prolonged bleeding, bruising easily, and swollen nodes. ENDOCRINE: Negative for cold or heat intolerance, polyuria, polydipsia and goiter. NEURO: negative Physical Exam: Constitutional: Pt is a well developed 18 year old female who is alert, oriented and cooperative Eyes: Following during examination. No redness or drainage. Respiratory: RR normal and nonlabored. Even breathing. No evidence of distress or shortness of breath. Psychology: Patient is engaged during conversation. Normal affect and mood. Does not appear depressed or anxious during encounter. Vascular: Dorsalis pedis and posterior tibial pulses palpable as b/l Capillary Fill time < 5 seconds to digits 1-5 b/l Skin temperature warm to warm proximal to distal b/l Hair growth present to digits Neurological: intact light touch/epicritic sensation b/l intact protective sensation no significant neurological deficits Dermatological: Left hallux lateral nail border is ingrowing with pain. There is small amount of drainage noted to left hallux lateral nail border with swelling and redness Musculoskeletal/Orthopaedic: Patient has pain to palpation of left hallux lateral nail border Radiographs: n/a ASSESSMENT: (L60.0) Ingrown toenail of left foot with infection PLAN: 1. History and physical examination performed. 2. Discussed ingrowing toenail of left hallux lateral nail border. This is an ongoing issue for patient. I discussed options for patient not limited to proper nail trimming vs partial nail matrixectomy. Being that this is a chronic problem for patient, I do feel partial nail matrixectomy is a reasonable option to consider. The only concern I have at this time is there is what appears to be infection present as evident by redness, drainage and swelling. I discussed options today with patient not limited to placing patient on antibiotic and doing partial nail avulsion vs slant back debridement and coming back to do definitive procedure in 1-2 weeks once infection is resolved. Patient elected for avulsion today and will plan to do matrixectomy in future. Discussed risks of toenail procedure not limited to infection, pain, swelling, bleeding, painful scarring, recurrence, need for revised procedure. Patient consented to proceed. Patient was properly identified by name and procedure. The left hallux was then injected with 3 cc of 1% lidocaine plain. The toe was then prepped and draped in the usual aseptic technique. A digital tournicot was applied to the toe. The lateral border was then freed and removed. Careful inspection was performed to assure no remaining spicule present. Avulsion was performed. Wound culture performed. Sterile dressing was then applied consisting of amerigel, guaze, fletcher and coban. Tournicot was removed and hyperemic response was noted. Patient tolerated well. Patient will f/u in 2 weeks. Scott Holman DPM Podiatry [address] [facility] [address] Dept: [phone] Dept UNIVERSAL PROTOCOL / SAFETY CHECKLIST Procedure to be Performed: Partial nail avulsion, left hallux lateral nail border Sign In: A Moment of CARE was completed. Personnel directly involved with the procedure wore the appropriate PPE (Personal Protective Equipment). No special equipment needed. Patient/Surrogate Stated/Verified: PATIENT VERIFIED(optional for EMERGENT procedures): Patient name, Date of , Relevant allergies, and The intended procedure Time Out Communication: Intended patient and procedure match the source documents. Consent documented and matches the intended procedure. Relevant labs, photos, and/or imaging studies have been reviewed. Correct side/site marked and visible. Medications required for procedure verified. No fire risk assessment and interventions applicable. No implant(s) inserted. Sign Out: SIGN OUT (optional for EMERGENT procedures): All specimen containers correctly labeled. All instruments, equipment, possible retained foreign bodies accounted for. Post-procedure follow-up management communicated and Plan of Care Visit completed when applicable. Jeniffer Herrera LPN Patient presents with: Left Great Toe - New Patient, Ingrown Nail Patient c/o ingrown toenail to L hallux lateral border since October. Was evaluated at PCP's office in October and placed on antibiotic. Since finishing antibiotic she has not had pain. documented in this encounter [facility] 03-09-2024 Note HNO ID: [id number] Author: JENIFFER HERRERA LPN Service: ? Author Type: LICENSED NURSE Type: Progress Notes Filed: 03/10/2024 07:57 Note Text: UNIVERSAL PROTOCOL / SAFETY CHECKLIST Procedure to be Performed: Partial nail avulsion, left hallux lateral nail border Sign In: A Moment of CARE was completed. Personnel directly involved with the procedure wore the appropriate PPE (Personal Protective Equipment). No special equipment needed. Patient/Surrogate Stated/Verified: PATIENT VERIFIED(optional for EMERGENT procedures): Patient name, Date of , Relevant allergies, and The intended procedure Time Out Communication: Intended patient and procedure match the source documents. Consent documented and matches the intended procedure. Relevant labs, photos, and/or imaging studies have been reviewed. Correct side/site marked and visible. Medications required for procedure verified. No fire risk assessment and interventions applicable. No implant(s) inserted. Sign Out: SIGN OUT (optional for EMERGENT procedures): All specimen containers correctly labeled. All instruments, equipment, possible retained foreign bodies accounted for. Post-procedure follow-up management communicated and Plan of Care Visit completed when applicable. Jeniffer Herrera LPN [facility] 03-09-2024 Instructions Jeniffer Herrera LPN - 03/09/2024 9:27 AM EDT Post-Op Nail Instructions Minimize activity until the anesthesia wears off (about 2-8 hours). Increase activity to tolerance Remove bandage tomorrow Soak affected toe/foot in epsom salts for 15-20 minutes twice daily After soaking, apply antibiotic ointment (OTC Neosporin) to affected toe and re bandage OTC Ibuprofen if having pain, provided you have no allergies or intolerance to NSAIDS Mild drainage, redness, and blood is expected, but if you expeirence severe pain, increase in drainage, swelling, or red streaking please contact our office immediately Feel free to contact office as well if you have any questions/concerns [phone], ask for Podiatry Nurse documented in this encounter [facility] 03-09-2024 Note HNO ID: [id number] Author: ALINA AGUILA RN Service: ? Author Type: Registered Nurse Type: Progress Notes Filed: 03/10/2024 07:57 Note Text: Patient presents with: Left Great Toe - New Patient, Ingrown Nail Patient c/o ingrown toenail to L hallux lateral border since October. Was evaluated at PCP's office in October and placed on antibiotic. Since finishing antibiotic she has not had pain. [facility] 02-02-2024 Telephone encounter Note Telephone on 01/27/24 CONSULT TO PODIATRY Elvin Modi MD [facility] 02-02-2024 Miscellaneous Notes Telephone on 01/27/24 CONSULT TO PODIATRY Elvin Modi MD Pt has a possible infected great toe. Wonders if you can see or if can get a referral placed to go to Podiatry? documented in this encounter [facility] 01-27-2024 Telephone encounter Note Pt has a possible infected great toe. Wonders if you can see or if can get a referral placed to go to Podiatry? [facility] 10-27-2023 History of Presen t illness Narrative Halley Urias is a 17-year-old female who presents to the office today with concerns of an ingrown left lateral great toenail. Soaking once to twice daily for the last 2 weeks with some mild improvement. No complaints of fever or generalized foot swelling. ACTIVE PROBLEM LIST Pyogenic Granuloma Hemangioma Acute Pain of Right Knee PAST MEDICAL HISTORY Diagnosis Date PM - PAST MEDICAL HISTORY OF 02/2007 normal color vision PAST SURGICAL HISTORY Procedure Laterality Date NONE REM LESION FACE,EAR,EYE 0.6-1CM 05/28/11 Right eyebrow hemangioma ALLERGIES No Known Allergies 10/27/23 0929 Pulse: 72 Resp: 16 Temp: 36.6 C (97.9 F) TempSrc: Esophageal Weight: 68.1 kg (150 lb 3.2 oz) Height: 168.9 cm (5' 6.5) GENERAL: alert and active in no apparent distress EXTREMITIES: Examination of the left great toe reveals an ingrown toenail along the left lateral border as well as granulation tissue. Discrete purulent discharge is present but there is no streaking or tracking over the dorsal or plantar surface of the foot. Great toe flexion and extension are intact. Sensation is intact in the great toe. Capillary refill is 1 second in the great toe ASSESSMENT/PLAN: 1. Ingrown toenail of left foot with infection - ICD9: 703.0, ICD10: L60.0 - AMOXICILLIN 875 MG-POTASSIUM CLAVULANATE 125 MG TABLET -Recommend the patient have matrixectomy. Patient will discuss with her family. I spent a total of 25 minutes on the date of the service which included preparing to see the patient, [id number] patient care, completing clinical documentation, obtaining and/or reviewing separately obtained history, performing a medically appropriate examination, counseling and educating the patient/family/caregiver, and ordering medications, tests, or procedures. 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 Patient reports congestion, intermittent fever and sore throat, and R ear pain. HPI: Halley Urias is a 17 year old female who presents to the office with complaint of respiratory symptoms, cough, nonproductive, sore throat, ear symptoms, and rhinorrhea for 5 days. Symptoms are staying the same. Associated symptoms includes sore throat, nasal congestion, rhinorrhea, fever, and ear pain. Denies facial pain/pressure, wheezing, dyspnea, nausea, vomiting , and diarrhea. Treatments tried include OTC cold medicine with minor relief of symptoms. Sick contacts: yes. History of asthma, frequent episodes of bronchitis, chronic bronchitis, bronchiectasis or COPD: No Smoker: No Seasonal/environmental allergies: No The ROS is otherwise negative. The patient's pmh, medications, allergies, and past visits are reviewed. PHYSICAL EXAM: BP 142/87 Pulse 107 Temp 37.1 C (98.7 F) Resp 20 Wt 68.9 kg (152 lb) LMP 09/06/2023 (Approximate) SpO2 96% General appearance: alert, cooperative, pleasant, in no acute distress Head: Normocephalic Eyes: PERRLA, EOM's intact, conjunctiva pink and moist, no icterus, sclera white, non-injected Ears: Right ear: External ear/canal- otitis externa, TM - erythematous. Left ear: External ear/canal- Normal, TM - clear with good landmarks Nose: clear rhinorrhea. Oropharynx:moist without lesions, mild erythema, without exudates present Neck:supple and no adenopathy Heart: Negative. RRR without obvious murmur, gallop, or rubs. No ectopy. Lungs: clear to auscultation, without rales or wheeze, good air exchange PAST MEDICAL HISTORY Diagnosis Date PMH - PAST MEDICAL HISTORY OF 02/2007 normal color vision PAST SURGICAL HISTORY Procedure Laterality Date NONE REM LESION FACE,EAR,EYE 0.6-1CM 05/28/11 Right eyebrow hemangioma ALLERGIES Patient has no known allergies. MEDICATIONS No prescriptions on file. FAMILY HISTORY Problem Relation Age of Onset Asthma Maternal Grandmother Hypertension Paternal Grandfather Heart Father atrial fibrillation Social History Tobacco Use Smoking status: Never Smokeless tobacco: Never Tobacco comments: no smoking in house Substance Use Topics Alcohol use: No Drug use: No DATA REVIEWED: Most recent labs ASSESSMENT/PLAN: 1. Sore throat - ICD9: 462, ICD10: J02.9 - suspect viral - Rapid Strep negative in the office today - Prescription for Fluticasone provided to help alleviate symptoms - Discussed supportive care treatment with fluids, rest and analgesia. - STREP A MOLECULAR (POC) - negative - COVID & INFLUENZA A/B & RSV NAAT, ROUTINE Prescription instructions reviewed with patient. Patient notified she would be contacted tomorrow with results of viral testing. Potential red flag symptoms discussed with the patient. Reviewed appropriate action plan to take if red flag symptoms occur. Patient agreeable to treatment plan. Ana Bassett Supervising provider was present and guided the care of the patient for the entire session on this date. All documentation was reviewed and agreed upon. Marcella Babcock APRN.ZACHARY documented in this encounter [facility] 03-28-2022 History of Presen t illness Narrative This note was created using BlockSpring[employer]. Subjective Halley Urias is a 16 year old female. HPI Patient presents needing a sports physical for [employer]. She will be going to [employer] starting next week. 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 She denies any concussions in the past. She did go to the ER for rolling her ankle in June 2021 but states that is all healed. No chest pain or shortness of breath. No URI symptoms. No abdominal pain vomiting or diarrhea. Last menstrual cycle was a month ago and normal for her. Denies chance of . Denies family history of sudden from cardiac illness under 35. See scanned document as well. Review of Systems Constitutional: Negative. HENT: Negative. Respiratory: Negative. Cardiovascular: Negative. Gastrointestinal: Negative. Genitourinary: Negative. Musculoskeletal: Negative. All other systems reviewed and are negative. PAST MEDICAL HISTORY Diagnosis Date PMH - PAST MEDICAL HISTORY OF 02/2007 normal color vision No current outpatient medications on file. No current facility-administered medications for this visit. PAST SURGICAL HISTORY Procedure Laterality Date NONE REM LESION FACE,EAR,EYE 0.6-1CM 05/28/11 Right eyebrow hemangioma FAMILY HISTORY Problem Relation Age of Onset Asthma Maternal Grandmother Hypertension Paternal Grandfather Heart Father atrial fibrillation Social History Tobacco Use Smoking status: Never Smokeless tobacco: Never Tobacco comments: no smoking in house Substance Use Topics Alcohol use: No Drug use: No Objective BP 124/82 Pulse 81 Temp 36.9 C (98.5 F) (Tympanic) Resp 16 Wt 66.8 kg (147 lb 3.2 oz) LMP 06/22/2021 SpO2 98% Physical Exam Vitals reviewed. Constitutional: Appearance: Normal appearance. HENT: Head: Normocephalic and atraumatic. Right Ear: Tympanic membrane, ear canal and external ear normal. Left Ear: Tympanic membrane, ear canal and external ear normal. Nose: Nose normal. Mouth/Throat: Mouth: Mucous membranes are moist. Pharynx: Oropharynx is clear. Cardiovascular: Rate and Rhythm: Normal rate and regular rhythm. Heart sounds: Normal heart sounds. Pulmonary: Effort: Pulmonary effort is normal. Breath sounds: Normal breath sounds. Skin: General: Skin is warm and dry. Findings: No rash. Neurological: General: No focal deficit present. Mental Status: She is alert and oriented to person, place, and time. Assessment and Plan ASSESSMENT/PLAN: 1. Sports physical - ICD9: V70.3, ICD10: Z02.5 Cleared here. Ilsa Solorzano PA-C documented in this encounter [facility] 02-12-2022 Miscellaneous Notes Message left for patient to call the office. Patient has appointment today with Dr. Modi. Please have patient arrive half an hour early to complete blood work due to lab closing at 5:00pm. Patient needs varicella titers done, please verify if other blood work is needed. Renee Moreira Ma documented in this encounter [facility] Chief complaint+Reason for v isit Narrative IN OFFICE PROCEDURE February 04, 2025 3:16 pm [facility] Work Phone: Evaluation note* Diagnosis Sports physical- Primary Other general medical examination for administrative purposes documented in this encounter [facility] note* Diagnosis Sore throat- Primary Acute pharyngitis documented in this encounter [facility] note* Diagnosis Ingrown toenail of left foot with infection- Primary documented in this encounter [facility] note* Diagnosis Ingrown toenail of left foot with infection- Primary documented in this encounter [facility] note* Diagnosis Ingrown toenail of left foot with infection documented in this encounter [facility] noteNo assessment information availableBlChildren's [facility] Work Phone: Reason for referral (narrative)No reason for referral information availableNav[facility] Work Phone: Summary Purpose Family History No Family History Records FoundNo Family History Records FoundNo Family History Records Found Advance Directives No Advanced Directives Records FoundNo Advanced Directives Records FoundNo Advanced Directives Records Found Reason for Referral Specialty Diagnoses / Procedures Referred By Deysi eid Referred To Contact Podiatry Diagnoses Ingrown toenail of left foot with infection Procedures CONSULT TO PODIATRY OFFICE/OUTPATIENT NEW HIGH MDM 60 MINUTES Elvin Modi MD [address] [place] [address] Referral ID Status Reason Start Date Expiration Date Visits Requested Visits Authorized [id number] Authorized PCP Requested Referral 02/02/2024 02/01/2025 1 1 Additional Source Comments INFORMATION SOURCE (unrecogn ized section and content) DATE CREATED AUTHOR 07/13/2021 [facility] DATE CREATED AUTHOR AUTHOR'S ORGANIZ ATION 01/05/2025 [facility] DATE CREATED AUTHOR AUTHOR'S ORGANIZ ATION 02/07/2025 [facility] Source Comments (unrecognize d section and content) In the event this informatio n is protected by the Federal Confidentiality of Alcohol and Drug Abuse Patient Records regulations: The Federal rules restrict any use of the information to criminally investigate or prosecute any alcohol or drug abuse patient.[facility] the event this information is protected by the Federal Confidentiality of Alcohol and Drug Abuse Patient Records regulations: The Federal rules restrict any use of the information to criminally investigate or prosecute any alcohol or drug abuse patient.[facility] the event this information is protected by the Federal Confidentiality of Alcohol and Drug Abuse Patient Records regulations: The Federal rules restrict any use of the information to criminally investigate or prosecute any alcohol or drug abuse patient.[facility] the event this information is protected by the Federal Confidentiality of Alcohol and Drug Abuse Patient Records regulations: The Federal rules restrict any use of the information to criminally investigate or prosecute any alcohol or drug abuse patient.[facility] the event this information is protected by the Federal Confidentiality of Alcohol and Drug Abuse Patient Records regulations: The Federal rules restrict any use of the information to criminally investigate or prosecute any alcohol or drug abuse patient.[facility] the event this information is protected by the Federal Confidentiality of Alcohol and Drug Abuse Patient Records regulations: The Federal rules restrict any use of the information to criminally investigate or prosecute any alcohol or drug abuse patient.[facility] the event this information is protected by the Federal Confidentiality of Alcohol and Drug Abuse Patient Records regulations: The Federal rules restrict any use of the information to criminally investigate or prosecute any alcohol or drug abuse patient.[facility] the event this information is protected by the Federal Confidentiality of Alcohol and Drug Abuse Patient Records regulations: The Federal rules restrict any use of the information to criminally investigate or prosecute any alcohol or drug abuse patient.[facility] Reason for Visit (unrecogniz ed section and content) Reason Comments 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 Reason Comments Ear Pain Bilat ears full, R w orse, hot flashes x 5 days Sinus Problem Pain and pressure in face and head, nasal congestion , headache x 5 days Reason Comments Check Toe Ingrown toenail - L great toe Reason Comments Ingrown Toenail Reason Comments New Patient Ingrown Nail Specialty Diagnoses / Procedures Referred By Deysi eid Referred To Contact Podiatry Diagnoses Ingrown toenail of left foot with infection Procedures CONSULT TO PODIATRY OFFICE/OUTPATIENT NEW HIGH MDM 60 MINUTES Elvin Modi MD [address] [place] [address] Referral ID Status Reason Start Date Expiration Date V isits Requested Visits Authorized [id number] Closed PCP Requested Referral 02/02/2024 02/01/2025 1 1 Care Teams (unrecognized sec tion and content) Broadcast Meteorologist Relationship Specialty Start Date End Date Elvin Modi MD [address] [place] [address] PCP - General 03 Broadcast Meteorologist Relationship Specialty Start Date End Date Elvin Modi MD [address] [place] [address] PCP - General 03 Broadcast Meteorologist Relationship Specialty Start Date End Date Elvin Modi MD [address] [place], [place] [id number] PCP - General 03 Broadcast Meteorologist Relationship Specialty Start Date End Date Elvin Modi MD [address] [place], [place] [id number] PCP - General 03 Broadcast Meteorologist Relationship Specialty Start Date End Date Elvin Modi MD [address] [place], [place] [id number] PCP - General 03 Broadcast Meteorologist Relationship Specialty Start Date End Date Elvin Modi MD [address] [place], [place] [id number] PCP - General 03 Broadcast Meteorologist Relationship Specialty Start Date End Date Elvin Modi MD [address] [place], [place] [id number] PCP - General 03 Team Status: Active Member Role Status Dates Dr. Elvin Modi MD Family Provider Active Dr. Elvin Modi MD Primary Care Provider Active Team Status: Inactive Member Role Status Dates Dr. Elvin Modi MD Primary Care Provider Active Start: February 04, 2025 End: February 04, 2025 Dr. Elvin Modi MD Referring Provider Active S tart: February 04, 2025 End: February 04, 2025 Dr. Jeremy Lorenzana MD Attending Provider Active Start: February 04, 2025 End: February 04, 2025 Goals (unrecognized section and content) Goals may be documented in a n alternate section FOR RECORDS PERTAINING TO PATIENTS WHO ARE OR HAVE BEEN ENROLLED IN A CHEMICAL DEPENDENCY/SUBSTANCEABUSE PROGRAM, SOME INFORMATION MAY BE OMITTED. This clinical summary was aggregated from multiple sources. Caution should be exercised in using it in the provision of clinical care. This summary normalizes information from multiple sources, and as a consequence, information in this document may materially change the coding, format and clinical context of patient data. In addition, data may be omitted in some cases. CLINICAL DECISIONS SHOULD BE BASED ON THE PRIMARY CLINICAL RECORDS. [facility] [employer] [facility]. provides no warranty or guarantee of the accuracy or completeness of information in this document.
== END | disposition home or self-care (01) ==
LOC: LABSPEC 09:03
PROVIDERS: PCP Pediatrics; Referring Provider Surgery Plastic and Reconstructive Surgery; Visit Provider Surgery Plastic and Reconstructive Surgery
DX: L90.5 Scar conditions and fibrosis of skin (principal)
CPT/HCPCS: 88305